=== PATIENT | male | born 1955 | race Caucasian/White ===

== ENCOUNTER 2019-02-07 08:57 | Emergency (ER) | payer SELFPAY ==
[2019-02-07 09:03] VITALS: Wt 172.7 kg
[2019-02-07 09:37] LABS: APPEARANCE CLEAR (CLEAR); BILIRUBIN NEGATIVE (NEGATIVE); COLOR YELLOW (YELLOW); GLUCOSE NEGATIVE (NEGATIVE); KETONE NEGATIVE (NEGATIVE); NITRITE NEGATIVE (NEGATIVE); PROTEIN 1+ mg/dL (NEGATIVE); UROBILINOGEN NORMAL (NORMAL)
[2019-02-07 09:38] LABS: BACTERIA FEW /hpf (NEGATIVE); RED CELLS - URINE 0-5 /hpf (0-5); WHITE CELLS - URINE OCC /hpf (NEGATIVE)
[2019-02-07 09:59] LABS: BASOPHILS 0.1 % (0-2); EOSINOPHILS 0.1 % (0-7); HEMATOCRIT 42.3 % (42.0-54.0); HEMOGLOBIN 14.3 g/dL (13.5-17.5); IMMATURE GRANULOCYTES 0.2 % (0-5); MCH 30.8 pg (26.0-34.0); MCHC 33.8 g/dL (31.0-37.0); MEAN PLATELET VOLUME 10.1 fL (7.4-10.4); MONOCYTES 6.1 % (2-11); NEUTROPHILS 79.5 % (40-80); PLATELET COUNT 272 10x3/uL (130-400); RBC 4.65 10x6/uL (4.20-6.10); RDW 12.7 % (11.5-14.5); WBC 14.2 10x3/uL (4.8-10.8)
[2019-02-07 10:07] LABS: ANION GAP 18.6 mmol/L (8-16); CALCIUM 9.3 mg/dL (8.5-10.1); CARBON DIOXIDE 22.5 mmol/L (21.0-32.0); CREATININE - SERUM 1.1 mg/dL (0.6-1.3); POTASSIUM - SERUM 4.1 mmol/L (3.5-5.1)
[2019-02-07 10:13] LABS: BILIRUBIN - TOTAL 0.76 mg/dL (0.2-1.3); PROTEIN - SERUM 8.7 g/dL (6.4-8.2)
[2019-02-07] MEDS ORDERED: TYLENOL #4 W/CO1 TAB PO (11:46)
[2019-02-07] MEDS ORDERED: CIPRO500 MG PO (11:46)
[2019-02-07 12:39] VITALS: BP 169/98
== END 2019-02-07 12:39 | disposition home or self-care (01) ==
LOC: D.ER 08:57
PROVIDERS: Family Medicine
DX: N41.9 Inflammatory disease of prostate, unspecified (principal); R33.9 Retention of urine, unspecified; I10 Essential (primary) hypertension

== ENCOUNTER 2019-02-11 16:34 | Emergency (ER) | payer SELFPAY ==
[~2019-02-11] VITALS: Ht 193 cm; Wt 172.7 kg
[~2019-02-11 16:34] MED LIST: CIPRO500 MG PO; TYLENOL #4 W/CO1 TAB PO
[2019-02-11 16:53] VITALS: Ht 193 cm; Wt 172.7 kg
[2019-02-11] MEDS ORDERED: PHENAZOPYRIDIN200 MG PO (17:46)
[2019-02-11 18:21] VITALS: BP 159/83
[2019-02-12] MEDS ORDERED: IBUPROFEN800 MG PO (09:15)
[2019-02-12] MEDS ORDERED: ACETAMINOPHEN500 M1 PO (09:15)
[2019-02-12] MEDS ORDERED: PHENAZOPYRIDIN200 MG PO (09:15)
[2019-02-12] MEDS ORDERED: CYCLOBENZAPRINE10 MG PO (09:15)
== END 2019-02-11 18:21 | disposition home or self-care (01) ==
LOC: D.ER 16:34
DX: Z46.6 Encounter for fitting and adjustment of urinary device (principal); R33.9 Retention of urine, unspecified; I10 Essential (primary) hypertension

== ENCOUNTER 2019-02-12 07:29 | Emergency (ER) | payer SELFPAY ==
[~2019-02-12] VITALS: Ht 193 cm; Wt 172.7 kg
[~2019-02-12 07:29] MED LIST changes: +PHENAZOPYRIDIN200 MG PO
[2019-02-12 07:34] VITALS: Ht 193 cm; Wt 172.7 kg
[2019-02-12 08:26] LABS: HEMATOCRIT 39.5 % (42.0-54.0); HEMOGLOBIN 13.6 g/dL (13.5-17.5); LYMPHOCYTES 21.6 % (15-50); MCH 30.5 pg (26.0-34.0); MCHC 34.4 g/dL (31.0-37.0); MCV 88.6 fL (80.0-100.0); MEAN PLATELET VOLUME 12.2 fL (7.4-10.4); NEUTROPHILS 70.7 % (40-80); PLATELET COUNT 249 10x3/uL (130-400); RBC 4.46 10x6/uL (4.20-6.10); RDW 12.6 % (11.5-14.5); WBC 8.7 10x3/uL (4.8-10.8)
[2019-02-12 08:39] LABS: APPEARANCE SL CLDY (CLEAR); BACTERIA FEW /hpf (NEGATIVE); BILIRUBIN NEGATIVE (NEGATIVE); COLOR YELLOW (YELLOW); EPITHELIAL CELLS 0-5 /hpf (0-5); GLUCOSE NEGATIVE (NEGATIVE); KETONE NEGATIVE (NEGATIVE); NITRITE NEGATIVE (NEGATIVE); PROTEIN 2+ mg/dL (NEGATIVE); RED CELLS - URINE >50 /hpf (0-5); SPECIFIC GRAVITY 1.025 (1.005-1.020); UROBILINOGEN NORMAL (NORMAL); WHITE CELLS - URINE OCC /hpf (NEGATIVE)
[2019-02-12 08:57] LABS: CALC OSMOLALITY 274 mosm/kg (275-300); CALCIUM 8.9 mg/dL (8.5-10.1); CARBON DIOXIDE 26.8 mmol/L (21.0-32.0); CHLORIDE - SERUM 104 mmol/L (98-107); GLUCOSE 107 mg/dL (74-106); POTASSIUM - SERUM 3.9 mmol/L (3.5-5.1); SODIUM 137 mmol/L (136-145); UREA NITROGEN 15 mg/dL (7-18); eGFR NON AFRICAN AMERICAN 80 mL/min (90-120)
[2019-02-12 09:03] LABS: ALBUMIN 3.6 g/dL (3.4-5.0); ALKALINE PHOSPHATASE 59 U/L (46-116); ALT (SGPT) 31 U/L (10-68); PROTEIN - SERUM 8.4 g/dL (6.4-8.2)
[2019-02-12] MEDS ORDERED: ACETAMINOPHEN500 M1 PO (09:15)
[2019-02-12] MEDS ORDERED: IBUPROFEN800 MG PO (09:15)
[2019-02-12] MEDS ORDERED: CYCLOBENZAPRINE10 MG PO (09:15)
[2019-02-12] MEDS ORDERED: PHENAZOPYRIDIN200 MG PO (09:15)
[2019-02-12 10:03] VITALS: BP 171/98
== END 2019-02-12 09:39 | disposition home or self-care (01) ==
LOC: D.ER 07:29
PROVIDERS: Family Medicine
DX: N36.9 Urethral disorder, unspecified (principal); Z46.82 Encounter for fitting and adjustment of non-vascular catheter

== ENCOUNTER → 2019-02-23 17:00 | Outpatient (CLI) | payer SELFPAY ==
[2019-02-12 07:34] VITALS: BMI 46.3
[~2019-02-23 17:00] MED LIST changes: +ACETAMINOPHEN500 M1 PO; +CYCLOBENZAPRINE10 MG PO; +IBUPROFEN800 MG PO
== END | disposition home or self-care (01) ==
LOC: D.LABREF 17:00
PROVIDERS: ATTEND Surgery
DX: L98.8 Other specified disorders of the skin and subcutaneous tissue (principal)